=== PATIENT | male | born 1985 | race Caucasian/White ===

== ENCOUNTER 2024-11-04 16:51 | Emergency (ER) | payer OTHER, SELFPAY ==
[2024-11-04 17:13] VITALS: BP 171/104; PULSE 94; RESP 20; TEMP 36.6; O2SAT 97; BMI 31.9
--- NOTE | 2024-11-04 17:21 | CT_ITS ---
PROCEDURE INFORMATION: Exam: CT Cervical Spine Without Contrast Exam date and time: 11/04/2024 6:25 PM Age: 38 years old Clinical indication: Neck pain; Additional info: Neck pain/crackling. No injury or accident TECHNIQUE: Imaging protocol: Computed tomography of the cervical spine without contrast. Radiation optimization: All CT scans at this facility use at least one of these dose optimization techniques: automated exposure control; mA and/or kV adjustment per patient size (includes targeted exams where dose is matched to clinical indication); or iterative reconstruction. COMPARISON: CT HEAD/BRAIN WO CON 11/04/2024 6:23 PM FINDINGS: Bones/joints: No acute fracture. Normal alignment. Degenerative changes. C2-C3: No significant disc bulge or herniation. No severe spinal canal stenosis. No significant neural foraminal narrowing. C3-C4: No significant disc bulge or herniation. No severe spinal canal stenosis. No significant neural foraminal narrowing. C4-C5: No significant disc bulge or herniation. No severe spinal canal stenosis. No significant neural foraminal narrowing. C5-C6: Disc space narrowing. No significant disc bulge or herniation. No severe spinal canal stenosis. No significant neural foraminal narrowing. C6-C7: Disc space narrowing. No significant disc bulge or herniation. No severe spinal canal stenosis. No significant neural foraminal narrowing. C7-T1: No significant disc bulge or herniation. No severe spinal canal stenosis. No significant neural foraminal narrowing. Lungs: Lung apices are normal. Soft tissues: Unremarkable. IMPRESSION: No acute findings.
--- NOTE | 2024-11-04 17:43 | HMH.EDGENADL ---
Discharge Plan Disposition Patient Disposition: Home, Self-Care Condition: Good Prescriptions Prescriptions: New lidocaine 5 % adhesive patch,medicated 1 patch topical DAILY Qty: 30 0RF Rx Instructions: leave on most painful area for up to 12 hrs methocarbamol 750 mg tablet 750 mg PO Q6H PRN (Reason: muscle spasm) Qty: 20 0RF Referrals Follow up/Referrals: Provider,Referral, [Primary Care Provider] - See instructions Activity Restrictions/Add. Instructions Additional Instructions/Restrictions: As we [facility] and for further workup of this neck pain. I have sent a prescription into your pharmacy for Lidoderm patch and muscle relaxer. Follow-up with your PCP once you establish care for no improvement or worsening signs or symptoms or return to the ER as needed. Clinical Impressions Clinical Impression: Cervicalgia Print Language Print Language: [place] Discharge ED Provider: Lam Garcias General Adult HPI <GARRICK Franklin - Last Filed: 11/04/24 21:06> General Chief complaint: PAIN Stated complaint: recurring MORALES Time Seen by Provider: 11/04/24 17:30 Mode of Arrival: Ambulatory Source of Information: Patient Limitations: No Limitations Description of Symptoms (Recalled from ER Triage Doc. by RN): pt to ed c/o pain at the base of his neck x3 months. pt reports the pain starts as a burning feeling then progressed to a throbbing and crackling pain. pt states it feels and sounds like pop rocks. pt reports a hx of htn but reports he does not take medication to control bp. History of Present Illness HPI narrative: Patient presents for evaluation of a headache. Patient has approximately 2-year history of intermittent headaches however over the last 4 days he has had a persistent headache. He has tried [id number] regimens without success. Patient has no change in his level of consciousness no change in his vision although he is photophobic. It is not hemispheric but total. He feels like it originates in the musculature of his neck and spreads anteriorly. It is worse when he looks up but there are no relieving factors. He denies nausea vomiting fever chills hemoptysis hematochezia melena. Related Data Previous Rx's ?Medication ?Instructions ?Recorded lidocaine 5 % topical patch 1 patch topical DAILY #30 ea 11/04/24 methocarbamol 750 mg tablet 750 mg PO Q6H PRN muscle spasm #20 11/04/24 tabs Allergies Allergy/AdvReac Type Severity Reaction Status Date / Time No Known Allergies Allergy Verified 11/04/24 17:21 [facility] <GARRICK Franklin - Last Filed: 11/04/24 21:06> [facility] Disclaimer: The information contained in this section may have been updated after the patient was seen, as this information can be updated by other users. Social History (Updated 11/04/24 @ 21:06 by GARRICK Franklin) Smoking Status: Never smoker alcohol intake: current alcohol intake frequency: a few times a month Type: beer current occupational status: employed Travel in the last 8 weeks: None Have you lived/traveled outside US in past 30 days?: No Contact w/someone who lives/traveled outside US past 30 days?: No Exposure to someone with infectious disease in past 14 days?: No Do you have a fever (greater than 100.4 F or 38 C)?: No Have you tested positive for COVID-19: No Exposed to someone with COVID-19 in past 14 days?: No Do you have a sore throat?: No Do you have a cough?: No Do you have any weakness?: No Do you have any diarrhea?: No Are you experiencing any unusual bleeding?: No Do you have any muscle aches/pain?: No Do you have any abdominal pain?: No Are you experiencing loss of taste or smell?: No <GARRICK Franklin - Last Filed: 11/04/24 21:06> ROS Obtained: Yes Systems reviewed as appropriate & no additional complaints except as documented Physical Exam <GARRICK Franklin - Last Filed: 11/04/24 21:06> General General appearance: alert and in no apparent distress Head Head exam: atraumatic and normal inspection Eye Eye exam: Present normal appearance, PERRL and EOMI Neck Neck exam: Present normal inspection, trachea midline and tenderness (Cervical musculature but not in the midline); Absent full ROM or lymphadenopathy Respiratory Respiratory exam: Present normal lung sounds bilaterally Cardiovascular Cardiovascular exam: Present regular rate Neurological Exam Neurological exam: Present alert, oriented X3, CN II-XII intact and normal gait; Absent motor sensory deficit Medical Decision Making <GARRICK Franklin - Last Filed: 11/04/24 21:06> Medical Records Medical records reviewed: Yes I reviewed the patient's medical records. Screening: Per USPSTF and CDC recommendations, given the prevalence of disease in our region, it is our hospital?s policy to screen for HIV and viral Hepatitis for all patients aged 18 and over and those with ongoing risk factors. Isacc Inquiry Pt receiving controlled substance: No Vital Signs: 11/04/24 17:13 11/04/24 19:56 Temperature 97.9 F 98.3 F Temperature Source Oral Oral Pulse Rate 62 Pulse Rate [Left Radial] 94 H Respiratory Rate 20 18 Blood Pressure 150/98 H Blood Pressure [Right Arm] 171/104 H Blood Pressure Mean [Right Arm] 126 Blood Pressure Source [Right Arm] Automatic Cuff Blood Pressure Position [Right Arm] Sitting 02 Sat by Pulse Oximetry 97 Oxygen Delivery Method Room Air Room Air Lab Data Lab results reviewed: Yes I reviewed the patient's lab results. Lab Results 11/04/24 17:50: WBC 8.9, RBC 5.53, Hgb 16.2, Hct 46.5, MCV 84.1, MCH 29.3, MCHC 34.8, RDW 12.0, Plt Count 261, MPV 10.4, Neut % (Auto) 60.5, Lymph % (Auto) 28.4, [place] % (Auto) 6.8, Eos % (Auto) 2.8, Baso % (Auto) 1.2, Neut # (Auto) 5.4, Lymph # (Auto) 2.5, [place] # (Auto) 0.6, Eos # (Auto) 0.3, Baso # (Auto) 0.1, ESR 2, PT 10.5, INR 0.93, Sodium 140, Potassium 4.0, Chloride 104, Carbon Dioxide 25, Anion Gap 15.0, BUN 11, Creatinine 1.00, Estimated Creat Clear 132, Estimated GFR 83, Est GFR ( Amer) 100, Glucose 92, Calcium 9.4, Magnesium 2.0, Total Bilirubin 0.4, AST 36, ALT 38, Alkaline Phosphatase 66, Troponin I < 0.01, C-Reactive Protein 1.6, Total Protein 7.1, Albumin 4.6, Globulin 2.5, Albumin/Globulin Ratio 1.8 11/04/24 17:50 11/04/24 17:50 Orders (Tests/Meds): ED MEDICATIONS Discontinued Medications Generic Name Dose Route Start Last Admin Trade Name Albin PRN Reason Stop Dose Admin Acetaminophen 1,000 mg 11/04/24 17:53 11/04/24 18:07 Acetaminophen 500mg Tab PO 11/04/24 17:54 1,000 mg ONCE ONE Administration Dexamethasone Sodium Phosphate 10 mg 11/04/24 17:53 11/04/24 18:07 Dexamethasone 4mg/Ml 5ml Mdv IV 11/04/24 17:54 10 mg ONCE ONE Administration Lactated Ringer's 1,000 mls @ 999 mls/hr 11/04/24 17:53 11/04/24 18:07 Lactated Ringer's 1000 Ml Bag IV 11/04/24 18:53 999 mls/hr .Q1H1M ONE Administration Iopamidol 80 ml 11/04/24 18:27 11/04/24 18:28 Iopamidol-370 (76%);100ml Bottle IV 11/04/24 18:28 80 ml ONCE ONE Administration Methocarbamol 500 mg 11/04/24 17:53 11/04/24 18:07 Methocarbamol 500mg Tablet PO 11/04/24 17:54 500 mg ONCE ONE Administration Prochlorperazine Edisylate 5 mg 11/04/24 17:53 11/04/24 18:08 Prochlorperazine 10mg/2ml Vial IV 11/04/24 17:54 5 mg ONCE ONE Administration Sodium Chloride 50 ml 11/04/24 18:27 11/04/24 18:28 0.9 % Sodium Chloride 50 Ml Vial IV 11/04/24 18:28 50 ml ONCE ONE Administration Sodium Chloride 10 ml 11/04/24 18:27 11/04/24 18:28 Sodium Chloride 0.9% 10ml Syr (Rad Only) IV 12/04/24 18:26 10 ml NEEDED PRN Administration Maintain IV Site ORDERS Category Date Time Status CT angio head Stat Cat Scan 11/04/24 17:[address] angio neck Stat Cat Scan 11/04/24 17:[address] cervical spine wo con Stat Cat Scan 11/04/24 17:[address] head/brain wo con Stat Cat Scan 11/04/24 17:53 Completed CBC w/Auto Diff [Complete Blood Count Auto Diff] Stat Lab 11/04/24 17:50 Completed CMP [Comprehensive Metabolic Panel] Stat Lab 11/04/24 17:50 Completed CRP [C-Reactive Protein] Stat Lab 11/04/24 17:50 Completed ESR [Erythrocyte Sedimentation Rate] Stat Lab 11/04/24 17:50 Completed INR [Prothrombin Time INR] Stat Lab 11/04/24 17:50 Completed Magnesium Stat Lab 11/04/24 17:50 Completed Trop I [Troponin I] Stat Lab 11/04/24 17:50 Completed Medical Decision Narrative: In summary patient is a 38-year-old male who presents to the emergency department for evaluation of 4 days of headache. Patient is initially hypertensive with a blood pressure 171/104 heart rate 94 respiratory rate 20 temperature is 97.9 O2 sats 97% on room air upon arrival. Physical exam is remarkable for a Cheryl Coma Score 15, patient is awake alert and oriented person place and circumstance, patient has no focal neurologic deficits, patient does have irregular pupils since he was a teenager due to eye injury and the left pupil is dilated and compared to right but patient retains vision and has no pain with extraocular movements. Patient is tender to palpation in the cervical musculature but not in the midline. There is no palpable bony deformity.. Differential diagnosis includes space-occupying lesion versus muscular headache versus cervical disc disease etc. Initial workup will be conducted with CT scan of the head and neck without contrast and CTA of the head and neck. Initial interventions include Tylenol Decadron Robaxin Compazine. Initial workup reviewed by me and his hematologic labs are nonactionable and my informal interpretation of his imaging shows no acute processes prior to radiology read. Upon repeat evaluation patient had near complete resolution of his headache after initial intervention. Given this patient is appropriate for discharge with referral to [facility] as if this persist he may need further imaging and workup. Patient verbalized understanding and agreement. He will be given a prescription for Robaxin and Lidoderm patches. <Lam Garcias MD - Last Filed: 11/05/24 15:15> Vital Signs: 11/04/24 17:13 11/04/24 19:56 Temperature 97.9 F 98.3 F Temperature Source Oral Oral Pulse Rate 62 Pulse Rate [Left Radial] 94 H Respiratory Rate 20 18 Blood Pressure 150/98 H Blood Pressure [Right Arm] 171/104 H Blood Pressure Mean [Right Arm] 126 Blood Pressure Source [Right Arm] Automatic Cuff Blood Pressure Position [Right Arm] Sitting 02 Sat by Pulse Oximetry 97 Oxygen Delivery Method Room Air Room Air Lab Data Lab Results 11/04/24 17:50: WBC 8.9, RBC 5.53, Hgb 16.2, Hct 46.5, MCV 84.1, MCH 29.3, MCHC 34.8, RDW 12.0, Plt Count 261, MPV 10.4, Neut % (Auto) 60.5, Lymph % (Auto) 28.4, [place] % (Auto) 6.8, Eos % (Auto) 2.8, Baso % (Auto) 1.2, Neut # (Auto) 5.4, Lymph # (Auto) 2.5, [place] # (Auto) 0.6, Eos # (Auto) 0.3, Baso # (Auto) 0.1, ESR 2, PT 10.5, INR 0.93, Sodium 140, Potassium 4.0, Chloride 104, Carbon Dioxide 25, Anion Gap 15.0, BUN 11, Creatinine 1.00, Estimated Creat Clear 132, Estimated GFR 83, Est GFR ( Amer) 100, Glucose 92, Calcium 9.4, Magnesium 2.0, Total Bilirubin 0.4, AST 36, ALT 38, Alkaline Phosphatase 66, Troponin I < 0.01, C-Reactive Protein 1.6, Total Protein 7.1, Albumin 4.6, Globulin 2.5, Albumin/Globulin Ratio 1.8 Orders (Tests/Meds): ED MEDICATIONS Discontinued Medications Generic Name Dose Route Start Last Admin Trade Name Freq PRN Reason Stop Dose Admin Acetaminophen 1,000 mg 11/04/24 17:53 11/04/24 18:07 Acetaminophen 500mg Tab PO 11/04/24 17:54 1,000 mg ONCE ONE Administration Dexamethasone Sodium Phosphate 10 mg 11/04/24 17:53 11/04/24 18:07 Dexamethasone 4mg/Ml 5ml Mdv IV 11/04/24 17:54 10 mg ONCE ONE Administration Lactated Ringer's 1,000 mls @ 999 mls/hr 11/04/24 17:53 11/04/24 18:07 Lactated Ringer's 1000 Ml Bag IV 11/04/24 18:53 999 mls/hr .Q1H1M ONE Administration Iopamidol 80 ml 11/04/24 18:27 11/04/24 18:28 Iopamidol-370 (76%);100ml Bottle IV 11/04/24 18:28 80 ml ONCE ONE Administration Methocarbamol 500 mg 11/04/24 17:53 11/04/24 18:07 Methocarbamol 500mg Tablet PO 11/04/24 17:54 500 mg ONCE ONE Administration Prochlorperazine Edisylate 5 mg 11/04/24 17:53 11/04/24 18:08 Prochlorperazine 10mg/2ml Vial IV 11/04/24 17:54 5 mg ONCE ONE Administration Sodium Chloride 50 ml 11/04/24 18:27 11/04/24 18:28 0.9 % Sodium Chloride 50 Ml Vial IV 11/04/24 18:28 50 ml ONCE ONE Administration Sodium Chloride 10 ml 11/04/24 18:27 11/04/24 18:28 Sodium Chloride 0.9% 10ml Syr (Rad Only) IV 12/04/24 18:26 10 ml NEEDED PRN Administration Maintain IV Site ORDERS Category Date Time Status CT angio head Stat Cat Scan 11/04/24 17:[address] angio neck Stat Cat Scan 11/04/24 17:[address] cervical spine wo con Stat Cat Scan 11/04/24 17:[address] head/brain wo con Stat Cat Scan 11/04/24 17:53 Completed CBC w/Auto Diff [Complete Blood Count Auto Diff] Stat Lab 11/04/24 17:50 Completed CMP [Comprehensive Metabolic Panel] Stat Lab 11/04/24 17:50 Completed CRP [C-Reactive Protein] Stat Lab 11/04/24 17:50 Completed ESR [Erythrocyte Sedimentation Rate] Stat Lab 11/04/24 17:50 Completed INR [Prothrombin Time INR] Stat Lab 11/04/24 17:50 Completed Magnesium Stat Lab 11/04/24 17:50 Completed Trop I [Troponin I] Stat Lab 11/04/24 17:50 Completed Medical Decision Narrative: In summary patient is a 38-year-old male who presents to the emergency department for evaluation of 4 days of headache. Patient is initially hypertensive with a blood pressure 171/104 heart rate 94 respiratory rate 20 temperature is 97.9 O2 sats 97% on room air upon arrival. Physical exam is remarkable for a Murdock Coma Score 15, patient is awake alert and oriented person place and circumstance, patient has no focal neurologic deficits, patient does have irregular pupils since he was a teenager due to eye injury and the left pupil is dilated and compared to right but patient retains vision and has no pain with extraocular movements. Patient is tender to palpation in the cervical musculature but not in the midline. There is no palpable bony deformity.. Differential diagnosis includes space-occupying lesion versus muscular headache versus cervical disc disease etc. Initial workup will be conducted with CT scan of the head and neck without contrast and CTA of the head and neck. Initial interventions include Tylenol Decadron Robaxin Compazine. Initial workup reviewed by me and his hematologic labs are nonactionable and my informal interpretation of his imaging shows no acute processes prior to radiology read. Upon repeat evaluation patient had near complete resolution of his headache after initial intervention. Given this patient is appropriate for discharge with referral to establish care with [facility] as if this persist he may need further imaging and workup. Patient verbalized understanding and agreement. He will be given a prescription for Robaxin and Lidoderm patches. I was consulted by the FAMILIA, and we discussed the complexity of the problems being addressed. I approved the treatment and management plan for this patient's care in the Emergency Department, thus performing a substantive portion of the medical decision making. Lam Garcias MD Critical Care <GARRICK Franklin - Last Filed: 11/04/24 21:06> Critical Care Time Critical Care Time: No
--- NOTE | 2024-11-04 17:53 | CT_ITS ---
PROCEDURE INFORMATION: Exam: CT Head Without Contrast Exam date and time: 11/04/2024 6:23 PM Age: 38 years old Clinical indication: Pain; Headache; Additional info: Recurrent headache TECHNIQUE: Imaging protocol: Computed tomography of the head without contrast. Radiation optimization: All CT scans at this facility use at least one of these dose optimization techniques: automated exposure control; mA and/or kV adjustment per patient size (includes targeted exams where dose is matched to clinical indication); or iterative reconstruction. COMPARISON: No relevant prior studies available. FINDINGS: Brain: Normal. No hemorrhage. Unremarkable white matter. No mass effect. Cerebral ventricles: No ventriculomegaly. Paranasal sinuses: Visualized sinuses are unremarkable. No fluid levels. Mastoid air cells: Visualized mastoid air cells are well aerated. Bones: Unremarkable. No acute fracture. Soft tissues: Unremarkable. IMPRESSION: No acute intracranial abnormality.
--- NOTE | 2024-11-04 17:53 | CT_ITS ---
PROCEDURE INFORMATION: Exam: CTA Head With Contrast, Arteriography Exam date and time: 11/04/2024 6:27 PM Age: 38 years old Clinical indication: Pain; Headache; Additional info: Recurrent headache TECHNIQUE: Imaging protocol: Computed tomographic angiography of the head with contrast. Exam focused on the arteries. 3D rendering (Not supervised by radiologist): MIP and/or 3D reconstructed images were created by the technologist. Radiation optimization: All CT scans at this facility use at least one of these dose optimization techniques: automated exposure control; mA and/or kV adjustment per patient size (includes targeted exams where dose is matched to clinical indication); or iterative reconstruction. Contrast material: ISOVUE; Contrast volume: 80 ml; Contrast route: INTRAVENOUS (IV); COMPARISON: CT HEAD/BRAIN WO CON 11/04/2024 6:23 PM FINDINGS: ANTERIOR CIRCULATION: Right internal carotid artery: Intracranial segment is patent with no significant stenosis. No aneurysm. Right middle cerebral artery: No occlusion or significant stenosis. No aneurysm. Right anterior cerebral artery: No occlusion or significant stenosis. No aneurysm. Left internal carotid artery: Intracranial segment is patent with no significant stenosis. No aneurysm. Left middle cerebral artery: No occlusion or significant stenosis. No aneurysm. Left anterior cerebral artery: No occlusion or significant stenosis. No aneurysm. POSTERIOR CIRCULATION: Right vertebral artery: No occlusion or significant stenosis. No aneurysm. Left vertebral artery: No occlusion or significant stenosis. No aneurysm. Basilar artery: No occlusion or significant stenosis. No aneurysm. Right posterior cerebral artery: No occlusion or significant stenosis. No aneurysm. Left posterior cerebral artery: No occlusion or significant stenosis. No aneurysm. Brain: No definite mass, mass effect, or midline shift. Cerebral ventricles: No ventriculomegaly. Bones/joints: Unremarkable. No acute fracture. Soft tissues: Unremarkable. IMPRESSION: No large vessel stenosis or occlusion.
--- NOTE | 2024-11-04 17:55 | CT_ITS ---
PROCEDURE INFORMATION: Exam: CTA Neck With Contrast Exam date and time: 11/04/2024 6:27 PM Age: 38 years old Clinical indication: Pain; Headache; Additional info: Recurrent headache TECHNIQUE: Imaging protocol: Computed tomographic angiography of the neck with contrast. Exam focused on the cervical segments of the vasculature. 3D rendering (Not supervised by radiologist): MIP and/or 3D reconstructed images were created by the technologist. Radiation optimization: All CT scans at this facility use at least one of these dose optimization techniques: automated exposure control; mA and/or kV adjustment per patient size (includes targeted exams where dose is matched to clinical indication); or iterative reconstruction. Contrast material: ISOVUE; Contrast volume: 80 ml; Contrast route: INTRAVENOUS (IV); COMPARISON: CT CERVICAL SPINE WO CON 11/04/2024 6:25 PM FINDINGS: Right common carotid artery: No stenosis. No dissection or occlusion. Right internal carotid artery: No stenosis of the extracranial segment. No dissection or occlusion. Right external carotid artery: No occlusion or stenosis of the origin. Left common carotid artery: No stenosis. No dissection or occlusion. Left internal carotid artery: No stenosis of the extracranial segment. No dissection or occlusion. Left external carotid artery: No occlusion or stenosis of the origin. Right vertebral artery: No stenosis. No dissection or occlusion. Left vertebral artery: No stenosis. No dissection or occlusion. Soft tissues: Normal. No significant soft tissue swelling. Bones/joints: No acute fracture. IMPRESSION: No significant stenosis or occlusion. REFERENCES: NASCET CRITERIA. The degree of stenosis in the cervical segment of the internal carotid artery is based on NASCET criteria. Normal is no stenosis. Mild is less than 50% stenosis. Moderate is 50-69% stenosis. Severe is 70% to 99% stenosis. Total occlusion is no detectable patent lumen.
[2024-11-04 18:00] LABS: Basophils # 0.1 K/mm3 (0-0.2); Basophils % 1.2 % (0.1-2.0); Eosinophils # 0.3 K/mm3 (0.0-0.4); Eosinophils % 2.8 % (0.1-12.0); Hematocrit 46.5 % (42.0-52.0); Hemoglobin 16.2 g/dL (14.1-18.0); Lymphocytes # 2.5 K/mm3 (0.7-4.5); Lymphocytes % 28.4 % (10-50); Mean Corpuscular HGB Conc 34.8 g/dL (31.8-35.4); Mean Corpuscular Hemoglobin 29.3 pg (27.0-31.2); Mean Corpuscular Volume 84.1 fl (80-94); Mean Platelet Volume 10.4 fl (7.4-10.4); Monocytes # 0.6 K/mm3 (0.1-1.0); Monocytes % 6.8 % (1.7-9.3); Neutrophils # 5.4 K/mm3 (1.8-7.8); Neutrophils % 60.5 % (37.0-80.0); Platelet Count 261 K/mm3 (142-424); Red Blood Count 5.53 M/mm3 (4.60-6.20); White Blood Count 8.9 K/mm3 (4.8-10.8)
[2024-11-04 18:06] LABS: Albumin Level 4.6 g/dl (3.5-5.0); Chloride 104 mmol/L (98-107); Sodium 140 mmol/L (136-145)
[2024-11-04] MEDS: DEXAMETHASONE 4MG/ML 5ML MDV 10 MG IV (18:07)
[2024-11-04] MEDS: LACTATED RINGERS 1000ML 1,000 ML 999 ML IV (18:07)
[2024-11-04] MEDS: ACETAMINOPHEN 500MG TAB 1000 MG PO (18:07)
[2024-11-04] MEDS: METHOCARBAMOL 500MG TABLET 500 MG PO (18:07)
[2024-11-04 18:08] LABS: Alanine Aminotransferase 38 U/L (12-78); Aspartate Amino Transferase 36 U/L (17-59); Blood Urea Nitrogen 11 mg/dl (9-20); Carbon Dioxide 25 mmol/L (22.0-30.0); Creatinine Clearance Estimated 132 mL/min (50-200); Estimated Glomerular Filt Rate 83 ml/min (>60); GFR (African American) 100 ML/MIN (>60)
[2024-11-04] MEDS: PROCHLORPERAZINE 10MG/2ML VIAL 5 MG IV (18:08)
[2024-11-04 18:09] LABS: Albumin/Globulin Ratio 1.8 (1.1-1.8); Alkaline Phosphatase 66 U/L (38-126); Bilirubin,Total 0.4 mg/dl (0.2-1.3); Calcium 9.4 mg/dl (8.4-10.2); Globulin 2.5 g/dL (1.3-3.2); Glucose 92 mg/dl (74-100); Total Protein,Serum 7.1 g/dl (6.3-8.2)
[2024-11-04 18:14] LABS: C-Reactive Protein 1.6 mg/L (0-4)
[2024-11-04 18:19] LABS: INR 0.93 (0.9-1.1); Prothrombin Time 10.5 seconds (10.1-12.5)
[2024-11-04 18:27] LABS: Troponin I < 0.01 ng/ml (0.00-0.034)
[2024-11-04] MEDS: 0.9 % SODIUM CHLORIDE 50 ML VIAL IV (18:28)
[2024-11-04] MEDS: IOPAMIDOL-370 (76%);100ML BOTTLE 80 ML IV (18:28)
[2024-11-04] MEDS: SODIUM CHLORIDE 0.9% 10ML SYR (RAD ONLY) 10 ML IV (18:28)
[2024-11-04 18:40] LABS: Erythrocyte Sedimentation Rate 2 mm/hr (0-15)
[2024-11-04 19:56] VITALS: BP 150/98; PULSE 62; RESP 18; TEMP 36.8; O2SAT 97
== END 2024-11-04 20:00 | disposition home or self-care (01) ==
PROVIDERS: Physician Assistant; Emergency Provider Emergency Medicine
DX: M54.2 Cervicalgia (principal); R51.9 Headache, unspecified; I10 Essential (primary) hypertension
CPT/HCPCS: 70450; 70496; 70498; 72125; 80053; 83735; 84484; 85025; 85610; 85651; 86140; 96361; 96374; 96375; 99285; J0780; J1100; J7120; Q9967

== ENCOUNTER 2025-07-13 18:10 | Emergency (ER) | payer OTHER, SELFPAY ==
[2025-07-13 18:11] VITALS: BP 179/121; BP 181/121; PULSE 77; RESP 18; TEMP 36.7; O2SAT 100; BMI 33.9
[2025-07-13 18:19] VITALS: BP 192/111; PULSE 78; RESP 20; O2SAT 96
--- OUTSIDE RECORDS SUMMARY | 2025-07-13 18:25 | XMS_ITS | Clinical Summary ---
Author Organization Healthcare Address [address] [place] [address] Care Team Providers Care Automatic Glove Former Name Role Phone Lynda Taylor RN BARIATRIC Primary Care Provider + Social History Tobacco Use Types Packs/Day Years Used Date Smoking Tobacco: Never Assessed Sex and Gender Information Value Date Recorded Sex Assigned at Not on file Legal Sex Male 8:15 PM EDT Gender Identity Not on file Sexual Orientation Not on file Plan of Treatment Not on file Care Teams Automatic Glove Former Relationship Specialty Start Date End Date Lynda Taylor, RN BARIATRIC [address] [place], [place] [id number] [place] [address] PCP - General 03/16/21
--- OUTSIDE RECORDS SUMMARY | 2025-07-13 18:25 | XMS_ITS | Encounter Summary ---
Author Organization Healthcare Address [address] [place] [address] Care Team Providers Care Job Printer Apprentice Name Role Phone Lynda Taylor GEM CUTTER Primary Care Provider + Encounter Details Date Type Department Care Team (Late st Contact Info) Description 01/05/2024 Community [facility] [address] [place] [address] Corrine Bailey PA [address] [place] [address] Daytime somnolence (Primary Dx) Social History Tobacco Use Types Packs/Day Years Used Date Smoking Tobacco: Never Assessed Sex and Gender Information Value Date Recorded Sex Assigned at Not on file Legal Sex Male 8:15 PM EDT Gender Identity Not on file Sexual Orientation Not on file documented as of this encounter Plan of Treatment Not on file documented as of this encounter Visit Diagnoses Diagnosis Daytime somnolence- Primary documented in this encounter Care Teams Job Printer Apprentice Relationship Specialty Start Date End Date Lynda Taylor APRN [address] [place], [place] [id number] [address] PCP - General 03/16/21 documented as of this encounter
--- NOTE | 2025-07-13 18:26 | ECG_ITS ---
APPROVED REPORT Exam: Resting ECG HR:73 bpm ECG Measurements Heart Rate 73 AXES [place] 185 P 55 QRSd 105 QRS 26 QT 378 T 13 QTc 403 Conclusion SINUS RHYTHM INCOMPLETE RIGHT BUNDLE BRANCH BLOCK [90+ ms QRS DURATION, TERMINAL R IN V1/V2, 40+ ms S IN I/aVL/V4/V5/V6] BORDERLINE ECG UNCONFIRMED REPORT Electronically signed by : WALT SELF, 07/14/2025 00:41:24
--- NOTE | 2025-07-13 18:52 | CT_ITS ---
PROCEDURE INFORMATION: Exam: CT Head Without Contrast Exam date and time: 07/13/2025 7:02 PM Age: 39 years old Clinical indication: Pain; Headache; Additional info: Headache, hypertensive TECHNIQUE: Imaging protocol: Computed tomography of the head without contrast. Radiation optimization: All CT scans at this facility use at least one of these dose optimization techniques: automated exposure control; mA and/or kV adjustment per patient size (includes targeted exams where dose is matched to clinical indication); or iterative reconstruction. COMPARISON: CT ANGIO HEAD 11/04/2024 6:27 PM FINDINGS: Brain: Normal. No hemorrhage. Unremarkable white matter. No mass effect. Cerebral ventricles: No ventriculomegaly. Paranasal sinuses: Visualized sinuses are unremarkable. No fluid levels. Mastoid air cells: Visualized mastoid air cells are well aerated. Bones: Unremarkable. No acute fracture. Soft tissues: Unremarkable. IMPRESSION: No acute intracranial abnormality.
--- NOTE | 2025-07-13 18:53 | ED_ITS ---
Discharge Plan Disposition Chief Complaint: Headache Prescriptions Prescriptions: No Action lidocaine 5 % adhesive patch,medicated 1 patch topical DAILY Qty: 30 0RF Rx Instructions: leave on most painful area for up to 12 hrs methocarbamol 750 mg tablet 750 mg PO Q6H PRN (Reason: muscle spasm) Qty: 20 0RF Referrals Follow up/Referrals: Provider,Referral, [Primary Care Provider, Medical] - See instructions Print Language Print Language: Romanian Discharge ED Provider: Georgette Hernandez Adult HPI General Chief complaint: Headache Stated complaint: Headache, High bp Time Seen by Provider: 07/13/25 18:30 Mode of Arrival: Ambulatory Source of Information: Patient Description of Symptoms (Recalled from ER Triage Doc. by RN): patient presents to the ED for a headache and high blood pressure . patient stated he stopped aking his prescribed hypertension medications between 6 months and a year ago because they didn't seem to help. Patient stated that his BP at home was 170's/120's . PAtient stated his head is also hurting and rates the pain 8/10. History of Present Illness HPI narrative: Patient is a 39-year-old male with past medical history of hypertension, states he has also been on 20 of lisinopril but stopped taking this about 1 year ago. Patient states that he has been having a daily headache for the last year. Patient states that his headache has gotten worse over the last 4 days currently an 8 out of 10. Gradual in onset. Patient denies any vision changes neurologic symptoms. Patient denies any chest pain or shortness of breath. Patient states that he took his blood pressure at home and it was high and therefore he came here to the emergency department. Patient denies any other symptoms. Patient does not currently have a primary care provider. Patient is not on any blood thinners, does not take any daily medications. Patient has not had any associated trauma. Related Data Previous Rx's ?Medication ?Instructions ?Recorded lidocaine 5 % topical patch 1 patch topical DAILY #30 ea 11/04/24 methocarbamol 750 mg tablet 750 mg PO Q6H PRN muscle s pasm #20 11/04/24 tabs Allergies Allergy/AdvReac Type Severity Reaction Status Date / Time No Known Allergies Allergy Verified 11/04/24 17:21 [facility] Disclaimer: The information contained in this section may have been updated after the patient was seen, as this information can be updated by other users. Social History (Updated 11/04/24 @ 21:06 by GARRICK Franklin) Smoking Status: Never smoker alcohol intake: current alcohol intake frequency: a few times a month current occupational status: employed Travel in the last 8 weeks?: None Have you lived/traveled outside [place] in past 30 days?: No Contact w/someone who lives/traveled outside [place] past 30 days?: No Exposure to someone with infectious disease in past 14 days?: No Do you have a fever (greater than 100.4 F or 38 C)?: No Have you tested positive for COVID-19?: No Exposed to someone with COVID-19 in past 14 days?: No Do you have a sore throat?: No Do you have a cough?: No Do you have any weakness?: No Do you have any diarrhea?: No Are you experiencing any unusual bleeding?: No Do you have any muscle aches/pain?: No Do you have any abdominal pain?: No Are you experiencing loss of taste or smell?: No ROS Obtained: Yes All systems reviewed & no additional complaints except as documented and Yes Systems reviewed as appropriate & no additional complaints except as documented Physical Exam General General appearance: alert and in no apparent distress Head Head exam: atraumatic, normocephalic and normal inspection Eye Eye exam: Present normal appearance, PERRL and EOMI; Absent scleral icterus ENT ENT exam: Present normal exam and normal external ear exam Neck Neck exam: Present normal inspection and full ROM Chest Chest inspection: Present normal inspection and symmetric chest wall rise Respiratory Respiratory exam: Present normal lung sounds bilaterally; Absent respiratory distress or wheezes Cardiovascular Cardiovascular exam: Present regular rate, normal rhythm and normal heart sounds Abdominal Exam Abdominal exam: Present soft and distention; Absent tenderness, guarding or rebound Extremities Exam Extremities exam: Present normal inspection and full ROM Back Exam Back exam: Present normal inspection and full ROM Neurological Exam Neurological exam: Present alert and oriented X3 Psychiatric Psychiatric exam: Present normal affect and normal mood Skin Skin exam: Present warm and dry Medical Decision Making Medical Records Medical records reviewed: Yes I reviewed the patient's medical records. Screening: Per USPSTF and CDC recommendations, given the prevalence of disease in our region, it is our hospital?s policy to screen for HIV and viral Hepatitis for all patients aged 18 and over and those with ongoing risk factors. Isacc Inquiry Pt receiving controlled substance: No Vital Signs: 07/13/25 18:11 07/13/25 18:19 Temperature 98.0 F Temperature Source Oral Pulse Rate 78 Pulse Rate [Bilateral] 77 Respiratory Rate 18 20 Blood Pressure 192/111 H Blood Pressure [Left Arm] 181/121 H Blood Pressure [Right Arm] 179/121 H Blood Pressure Mean [Left Arm] 141 Blood Pressure Mean [Right Arm] 140 Blood Pressure Source Automatic Cuff Blood Pressure Source [Left Arm] Automatic Cuff Blood Pressure Source [Right Arm] Automatic Cuff Blood Pressure Position Sitting Blood Pressure Position [Left Arm] Sitting Blood Pressure Position [Right Arm] Sitting 02 Sat by Pulse Oximetry 100 96 Oxygen Delivery Method Room Air Room Air Lab Data Lab results reviewed: Yes I reviewed the patient's lab results. Lab Results 07/13/25 18:30: WBC 7.1, RBC 4.90, Hgb 14.8, Hct 41.3 L, MCV 84.3, MCH 30.2, M CHC 35.8 H, RDW 12.1, Plt Count 262, MPV 10.3, Neut % (Auto) 53.5, Lymph % (Auto) 31.9, [place] % (Auto) 8.9, Eos % (Auto) 4.1, Baso % (Auto) 1.3, Neut # (Auto) 3.8, Lymph # (Auto) 2.3, [place] # (Auto) 0.6, Eos # (Auto) 0.3, Baso # (Auto) 0.1, PT 10.6, INR 0.95, Sodium 140, Potassium 3.3 L, Chloride 108 H, Carbon Dioxide 25, Anion Gap 10.3, BUN 12, Creatinine 0.90, Estimated Creat Clear 155, Estimated GFR 93, Est GFR ( Amer) 113, Glucose 103 H, Calcium 8.9, Total Bilirubin 0.4, AST 40, ALT 47, Alkaline Phosphatase 74, Troponin I < 0.01, Total Protein 6.7, Albumin 4.4, Globulin 2.3, Albumin/Globulin Ratio 1.9 H 07/13/25 18:30 07/13/25 18:30 Orders (Tests/Meds): ED MEDICATIONS Generic Name Dose Route Start Last Admin Trade Name Freq PRN Reason Stop Dose Admin Sodium Chloride 1,000 mls @ 999 mls/hr 07/13/25 18:52 07/13/25 19:09 Sod Chlor 0.9% 1000ml Bag IV 07/13/25 19:52 999 mls/hr .Q1H1M ONE Administration Discontinued Medications Generic Name Dose Route Start Last Admin Trade Name Albin PRN Reason Stop Dose Admin Diphenhydramine HCl 25 mg 07/13/25 18:52 07/13/25 19:13 Diphenhydramine 50mg/Ml Vial IV 07/13/25 18:53 25 mg ONCE ONE Administration Ketorolac Tromethamine 30 mg 07/13/25 18:52 07/13/25 19:02 Ketorolac 30mg/Ml Vial IM 07/13/25 18:53 Not Given ONCE ONE Ketorolac Tromethamine 30 mg 07/13/25 18:52 07/13/25 19:12 Ketorolac 30mg/Ml Vial IV 07/13/25 18:53 30 mg ONCE ONE Administration Prochlorperazine Edisylate 5 mg 07/13/25 18:52 07/13/25 19:14 Prochlorperazine 10mg/2ml Vial IV 07/13/25 18:53 5 mg ONCE ONE Administration ORDERS Category Date Time Status CT head/brain wo con Stat Cat Scan 07/13/25 18:52 Taken CBC w/Auto Diff [Complete Blood Count Auto Diff] Stat Lab 07/13/25 18:30 Completed CMP [Comprehensive Metabolic Panel] Stat Lab 07/13/25 18:30 Completed PT INR [Prothrombin Time INR] Stat Lab 07/13/25 18:30 Completed Trop I [Troponin I] Stat Lab 07/13/25 18:30 Completed Troponin I Q3H Lab 07/13/25 22:00 Ordered Troponin I Q3H Lab 07/14/25 01:00 Ordered EKG Request [ECG Request] Stat Y 07/13/25 18:55 Ordered Medical Decision Narrative: Patient is a 39-year-old male with past medical history of hypertension who presents to the emergency department with a headache. On arrival, patient was mildly hypertensive but vital signs were otherwise unremarkable. Differential includes but not limited to: Intracranial hemorrhage, intracranial ischemia, hypertensive emergency, migraine, tension headache, amongst others. For patient's workup, he was ordered medications for migraine including Toradol, Compazine and Benadryl as well as IV fluids. CT head was ordered as well as labs. Patient ripped out his IV and left and eloped the emergency department. Therefore further workup was not completed. Critical Care Critical Care Time Critical Care Time: No
[2025-07-13 19:00] LABS: Hematocrit 41.3 % (42.0-52.0); Hemoglobin 14.8 g/dL (14.1-18.0); Immature Granulocytes % 0.3 %; Mean Corpuscular HGB Conc 35.8 g/dL (31.8-35.4); Mean Corpuscular Hemoglobin 30.2 pg (27.0-31.2); Mean Corpuscular Volume 84.3 fl (80-94); Nucleated Red Blood Cells % 0 %; Platelet Count 262 K/mm3 (142-424); Red Blood Count 4.90 M/mm3 (4.60-6.20); Red Cell Distribution Width-SD 36.7 fL; White Blood Count 7.1 K/mm3 (4.8-10.8)
[2025-07-13] MEDS: 0.9 % SODIUM CHLORIDE 1000ML 1,000 ML 999 ML IV (19:09)
[2025-07-13 19:12] LABS: INR 0.95 (0.9-1.1); Prothrombin Time 10.6 seconds (10.1-12.5)
[2025-07-13] MEDS: KETOROLAC 30MG/ML VIAL 30 MG IV (19:12)
[2025-07-13] MEDS: PROCHLORPERAZINE 10MG/2ML VIAL 5 MG IV (19:14)
[2025-07-13 19:17] LABS: Albumin Level 4.4 g/dl (3.5-5.0); Chloride 108 mmol/L (98-107); Potassium 3.3 mmoL/L (3.5-5.1); Sodium 140 mmol/L (136-145)
[2025-07-13 19:20] LABS: Alanine Aminotransferase 47 U/L (12-78); Albumin/Globulin Ratio 1.9 (1.1-1.8); Alkaline Phosphatase 74 U/L (38-126); Anion Gap 10.3 mEq/L (5-15); Aspartate Amino Transferase 40 U/L (17-59); Bilirubin,Total 0.4 mg/dl (0.2-1.3); Blood Urea Nitrogen 12 mg/dl (9-20); Calcium 8.9 mg/dl (8.4-10.2); Carbon Dioxide 25 mmol/L (22.0-30.0); Creatinine Clearance Estimated 155 mL/min (50-200); Creatinine,Serum 0.90 mg/dl (0.66-1.25); Estimated Glomerular Filt Rate 93 ml/min (>60); GFR (African American) 113 ML/MIN (>60); Globulin 2.3 g/dL (1.3-3.2); Glucose 103 mg/dl (74-100); Total Protein,Serum 6.7 g/dl (6.3-8.2)
[2025-07-13 19:34] LABS: Troponin I < 0.01 ng/ml (0.00-0.034)
[2025-07-13 19:43] VITALS: BP 000/00; PULSE 0; RESP 0; TEMP -17.7; TEMP 0; O2SAT 0
--- NOTE | 2025-07-13 19:43 | PC.NURSE ---
Patric Milan comes to the nurses station and reports that he seen patient ambulate out of the department to his vehicle and drove off. Iv found in foor with fluids still running and monitoring equipment. It is determined that patient ELOPED without explanations at this time.
== END 2025-07-13 19:40 | disposition left against medical advice (07) ==
PROVIDERS: Emergency Provider Student in an Organized Health Care Education/Training Program
DX: R51.9 Headache, unspecified (principal); I10 Essential (primary) hypertension
CPT/HCPCS: 70450; 80053; 84484; 85025; 85610; 93005; 96361; 96374; 96375; 99284; J0780; J1200; J1885; J7030